=== PATIENT | female | born 1960 ===

== ENCOUNTER 2023-08-29 06:07 | Day surgery (SDC) | payer BC, SELFPAY ==
[2023-08-29 06:30] VITALS: BP 128/91; PULSE 87; RESP 18; TEMP 36.5; O2SAT 98
[2023-08-29] MEDS: Tropicam./Phenyleph. (1/2.5%) 5 ML BTL OS ×3 (06:38→06:53)
--- NOTE | 2023-08-29 07:04 | W.ANESPRE ---
General Info Date of Service Date Performed: 08/29/23 Height: 5 ft 3 in Weight: 54.6 kg Body Mass Index (BMI): 21.3 Surgical Procedure: Operation Date: 08/29/23 07:40 Proposed Procedure Side Surgeon p Cataract Extraction with IOL Implant Left Jose Luis Hui MD Meds Allergies and Home Medications Allergies Allergy/AdvReac Type Severity Reaction Status Date / Time No Known Allergies Allergy Unverified 08/29/23 06:41 Home Medication Medication Instructions Recorded acyclovir 200 mg PO 5X/DAY PRN 08/26/23 cetirizine 10 mg tablet (24Hour 10 mg PO DAILY 08/26/23 Allergy) ezetimibe 10 mg tablet 10 mg PO DAILY 08/26/23 fluticasone propionate 50 1 spray intranasal DAILY PRN 08/26/23 mcg/actuation nasal spray,suspension (24 Hour Allergy Relief) multivitamin (Daily Multi-Vitamin 1 tab PO DAILY 08/26/23 tablet) spironolactone 50 mg tablet 50 mg PO DAILY 08/26/23 (Aldactone) tretinoin 0.025 % topical cream 1 applic topical QHS 08/26/23 (Avita) Current Visit Medications: Current Medications Generic Name Dose Route Start Last Admin Trade Name Freq PRN Reason Stop Dose Admin Acetaminophen 1,000 mg 08/29/23 06:00 Acetaminophen 500 Mg Tab PO 09/28/23 05:59 Q4H PRN PRN Balanced Salt Solution 500 ml 08/29/23 06:00 Balanced Salt Soln.-Plus 500 Ml Bag OP 09/28/23 05:59 DIRECTED MICHAEL Miscellaneous Medication 0 ml 08/29/23 06:00 08/29/23 06:53 Tropicam./Phenyleph. (1/2.5%) 5 Ml Btl OS 09/28/23 05:59 1 drp DIRECTED MICHAEL Administration Miscellaneous Medication 0 ml 08/29/23 06:00 Prednisolone 1%, Moxifloxacin 0.5%, Bromfenac 0.09% 5ml Btl OS 09/28/23 05:59 DIRECTED MICHAEL Tetracaine HCl 0 ml 08/29/23 06:00 Tetracaine 0.5% 4 Ml Btl OS 09/28/23 05:59 DIRECTED MICHAEL PFSH Active Problems Active Problems: Problem Status Onset Code Cortical age-related cataract, left eye H25.012 Nuclear age-related cataract, left eye H25.12 Medical History Medical History Cataracts, bilateral History of uterine fibroid Acne vulgaris Allergic rhinitis Perimenopausal Hypercholesteremia Surgical History Surgical History H/O vaginal hysterectomy 2007 History of colonoscopy 05/24/09 Tobacco Smoking/Tobacco Use Status: Never Alcohol Alcohol Intake: current Alcohol intake frequency: holidays/special occasions only Substance Use Substance use: Never Substance use type: does not use Vital Signs and Lab Results Vital Signs Most Recent Vital Signs in EMR: Most Recent Vital Signs Temp Pulse Resp BP Pulse Ox 36.5 C 87 18 128/91 H 98 08/29/23 06:30 08/29/23 06:30 08/29/23 06:30 08/29/23 06:30 08/29/23 06:30 Lab Results Blood Type / Crossmatch: No Data to Display Complete Blood Count: No Data to Display Complete Metabolic Panel: No Data to Display Liver Function Panel: No Data to Display Coagulation Panel: No Data to Display Cardiac Panel: No Data to Display Arterial Blood Gas: No Data to Display Venous Blood Gas: No Data to Display Pancreas Panel: No Data to Display Thyroid Panel: No Data to Display Infectious Disease: No Data to Display Blood Cultures: No Data to Display Toxicology Panel: No Data to Display Anesthesia Assessment and Plan Anesthesia History Personal History: No History of Anesthesia Complications Family History: No Family History of Anesthesia Complications Exercise Tolerance Exercise Tolerance: Metabolic Equivalents>4 Pertinent Negatives Pertinent Negatives: No Symptoms of GERD, No Major Cardiovascular Symptoms or Complaints and No Major Pulmonary Symptoms or Complaints Cardiac & Pulmonary Exam Cardiac Exam: Normal S1/S2 Heart Sounds Pulmonary Exam: Clear Bilateral Breath Sounds Implantable Cardiac Device Does patient have a Pacemaker or an ICD?: No Airway Exam Known Difficult Airway: No Mallampati Class: 1 Mouth Opening: Normal (> 3cm) Thyromental Distance: Greater than 3 cm Neck Range of Motion: Full ROM Neck Circumference: Normal Teeth Condition: Normal Dentition ASA Classification ASA Score: ASA 2 Emergency Case?: No NPO Status NPO Status: NPO Clears >2 hours, Solids >8 hours Anesthesia Plan Resuscitation Status: Full Code Anesthesia Technique: MAC Anesthesia Airway Planned: Natural Airway Monitors Used: Standard Monitors
[2023-08-29 07:06] VITALS: BMI 21.3
[2023-08-29] MEDS: Lidocaine 1% Pres-Free 5 ML VIAL (07:36)
[2023-08-29] MEDS: Duovisc Viscoelastic System EACH 1 EACH (07:37)
[2023-08-29] MEDS: Balanced Salt Soln.-PLUS 500 ML BAG OP (07:39)
[2023-08-29] MEDS: Povidone-Iodine Ophth 30 ML BTL (07:41)
[2023-08-29] MEDS: Tetracaine 0.5% 4 ML BTL OS (07:41)
[2023-08-29 07:52] VITALS: BP 93/71; PULSE 76; RESP 16; TEMP 36.5; O2SAT 16
--- NOTE | 2023-08-29 07:52 | W.PM.DSUDISC ---
Date of service: 08/29/23 Time of Service: 07:52 Discharge Plan Disposition Patient Disposition: Home Discharge Details Attending Provider: Jose Luis Hui Primary Care Provider: Amberly Marx Home Meds and New Rx's Prescriptions: No Action acyclovir 200 mg PO 5X/DAY PRN ezetimibe 10 mg tablet 10 mg PO DAILY fluticasone propionate [24 Hour Allergy Relief] 50 mcg/actuation spray,suspension 1 spray intranasal DAILY PRN Rx Instructions: administer into each nostril multivitamin [Daily Multi-Vitamin] Tablet 1 tab PO DAILY tretinoin [Avita] 0.025 % cream 1 applic topical QHS spironolactone [Aldactone] 50 mg tablet 50 mg PO DAILY cetirizine [24Hour Allergy] 10 mg tablet 10 mg PO DAILY Discharge Instructions Stand Alone Forms: Post-op Topical Cataract, Geraldine Godoyey ([facility]) Discharge Orders Discharge Orders: Discharge Order (Routine); Ordered 08/29/23 Ordered By: Jose Luis Hui DS: Diagnosis Discharge Diagnosis (1) Cortical age-related cataract, left eye: Status: Resolved (2) Nuclear age-related cataract, left eye: Status: Resolved
--- NOTE | 2023-08-29 07:53 | W.PM.OP ---
Date of service: 08/29/23 Time of Service: 07:53 Operative Note Operative Note DATE OF PROCEDURE: 08/29/23 POST-OP DIAGNOSIS: same PROCEDURE: Cataract extraction using phacoemulsification with intraocular lens implant, left eye SURGEON: Jose Luis Hui ANESTHESIA TYPE: Local By Surgeon and MAC Refer to Anesthesia Record PATHOLOGY: none sent COMPLICATIONS: None Patient was transported to: same day Patient's condition: stable Implants: David and David Tecnis Eyhance [id number] Indications: Progressive decreased vision due to cataract, left eye Procedure Description: CATARACT SURGERY OPERATIVE REPORT PREOPERATIVE DIAGNOSIS: 1. Nuclear/cortical cataract, left eye POSTOPERATIVE DIAGNOSIS: Same OPERATION: 1. Cataract extraction using phacoemulsification with posterior chamber intraocular lens implant, left eye. IOL: IOL Package Delivery Driver/Model: David & David Tecnis Eyhance [id number] IOL Power: + 15.5 diopters IOL Serial Number: [id number] Optic Diameter: 6.0 mm Haptic/Overall Diameter: 13.0 mm PHACO INFO: Steve Keniuurion Vision System with OZil and Active Fluidics Cumulative Dispersed Energy (CDE): 6.42 seconds SURGEON: Jose Luis Hui MD, JAS ANESTHESIA: Monitored A [facility] (MAC), with local sub-tenon's anesthetic infiltration COMPLICATIONS: None SPECIMENS: None INDICATIONS FOR PROCEDURE: The patient is a 63-year-old lady with history of myopia who has developed symptomatic bilateral nuclear/cortical cataract. She is significantly symptomatic that she desires cataract surgery and attempt to improve and maximize her vision. See office notes for detailed information. PROCEDURE: The correct surgical eye was identified and marked as the left eye and the pupil was dilated in the preoperative area using mydriatics and cycloplegics. The dilated pupil size was 7.0 mm. Oral sedation was administered in the form of an Imprimis MKO Melt (midazolam 3mg/ketamine 25mg/ondansetron 2mg). The patient was brought to the operating room where cardiopulmonary monitoring was instituted and surgical time-out was performed, confirming the correct operative eye and IOL power. Topical anesthesia was administered and ophthalmic povidone-iodine 5% was instilled into the conjunctival fornices. The yazmin-ocular area was prepped with Betadine 10% solution and draped in the usual sterile fashion for intraocular surgery, including an aperture drape. A Tegaderm transparent film dressing was cut in half and used to cover the lashes and lid margins. Care was taken to sequester the lashes and lid margins under the Tegaderm dressing. A lid speculum was placed between the lids of the operative eye and the Steve LuxOR Revalia operating microscope was maneuvered into position. Jayson scissors were then used to make a conjunctival buttonhole approximately 6mm posterior to the limbus in the inferonasal quadrant. Blunt dissection was carried out to expose bare sclera, and a blunt-tipped sub-tenon?s anesthesia cannula was introduced and passed posteriorly along the globe where non-preserved plain lidocaine was injected into posterior sub-Tenon?s space. A sideport knife was used to make a paracentesis port. Intraocular phenylephrine/lidocaine was injected into the anterior chamber.. The anterior chamber was filled with viscoelastic. A keratome knife was used to construct a 2-plane near-clear corneal tunnel extending 2.0mm into clear cornea. A flap was raised on the anterior capsule and capsulorhexis forceps were used to complete a continuous curvilinear capsulorhexis of 5.0 mm. Balanced salt solution was then used to perform cortical cleaving hydrodissection and nuclear hydrodelineation until the lens could be freely rotated within the capsular bag. The lens nucleus was then disassembled and removed within the capsular bag and iris plane using phacoemulsification. Residual cortical material was removed using the irrigation/aspiration handpiece. The posterior capsule was carefully polished to remove as much residual lens epithelial cells as safely possible. The capsular bag was then inflated and the anterior chamber deepened with viscoelastic. The lens implant described above was inserted into the capsular bag using the David and David Simplicity pre-loaded injector. A Kuglen hook was used to dial the IOL into position. Residual viscoelastic was then removed first from posterior to the IOL, then from the anterior chamber using the I/A handpiece. The lens implant was noted to center nicely within the capsular bag. The incisions were stromally hydrated, and the anterior chamber was reformed using BSS. Then 0.5cc of moxifloxacin 1.0mg/ml were injected into the capsular bag and anterior chamber. The incisions were checked with a Weck spear and found to be secure. Several drops of ophthalmic povidone-iodine 5% were then applied to the eye followed by two drops of Imprimis combination prednisolone/moxifloxacin/nepafenac solution. The drapes were removed and a clear plastic protective eye shield was placed over the eye. The patient was then returned to Same Day Surgery in stable condition.
--- NOTE | 2023-08-29 08:10 | W.ANESPOSTOP ---
Postoperative Evaluation Date, Time and Location Date Performed: 08/29/23 Time Performed: 07:58 Patient Location: Day Surgery Unit Vital Signs Most Recent Imported Vital Signs: Most Recent Vital Signs Temp Pulse Resp BP Pulse Ox 36.5 C 76 16 93/71 L 16 L 08/29/23 07:52 08/29/23 07:52 08/29/23 07:52 08/29/23 07:52 08/29/23 07:52 Pain Score Most Recent Pain Score: Most Recent Pain Score Pain Level 0 08/29/23 07:52 Assessment Mental Status: Awake (Alert & Oriented to Patient Baseline) Airway and Respiratory Function: Patent airway with normal (patient baseline) respiratory exam Cardiovascular Function: Hemodynamically Stable (Slight lower blood pressure, nonsymptomatic) Hydration Status: Adequately Hydrated Nausea & Vomiting: No Nausea or Vomiting Pain: Pt. Denies Any Pain Peripheral Nerve Block: Patient did not receive a nerve block
[2023-08-29 08:20] VITALS: BP 124/85; PULSE 76; RESP 16; TEMP 37; O2SAT 97
== END 2023-08-29 08:28 | disposition home or self-care (01) ==
LOC: SUR 06:08
PROVIDERS: PCP Nurse Practitioner; Visit Provider Ophthalmology
PROC: (CPT 66984; principal; 2023-08-29 07:30)
DX: H25.012 Cortical age-related cataract, left eye (principal); H25.12 Age-related nuclear cataract, left eye
CPT/HCPCS: 66984; 00123; V2632

== ENCOUNTER 2023-09-12 06:17 | Day surgery (SDC) | payer BC, SELFPAY ==
[2023-09-12 06:41] VITALS: BP 130/76; PULSE 71; RESP 16; TEMP 36.6; O2SAT 98
--- NOTE | 2023-09-12 07:19 | ANES.PREOP_ITS ---
General Info Date of Service Date Performed: 09/12/23 Height: 5 ft 3 in Weight: 53.3 kg Body Mass Index (BMI): 20.8 Surgical Procedure: Operation Date: 09/12/23 07:40 Proposed Procedure Side Surgeon p Cataract Extraction with IOL Implant Right oJse Luis Hui MD Meds Allergies and Home Medications Allergies Allergy/AdvReac Type Severity Reaction Status Date / Time No Known Allergies Allergy Unverified 09/12/23 06:26 Home Medication Medication Instructions Recorded acyclovir 200 mg PO 5X/DAY PRN 08/26/23 cetirizine 10 mg tablet (24Hour 10 mg PO DAILY 08/26/23 Allergy) ezetimibe 10 mg tablet 10 mg PO DAILY 08/26/23 fluticasone propionate 50 1 spray intranasal DAILY PRN 08/26/23 mcg/actuation nasal spray,suspension (24 Hour Allergy Relief) multivitamin (Daily Multi-Vitamin 1 tab PO DAILY 08/26/23 tablet) spironolactone 50 mg tablet 50 mg PO DAILY 08/26/23 (Aldactone) tretinoin 0.025 % topical cream 1 applic topical QHS 08/26/23 (Avita) Current Visit Medications: Current Medications Generic Name Dose Route Start Last Admin Trade Name Freq PRN Reason Stop Dose Admin Acetaminophen 1,000 mg 09/12/23 06:00 Acetaminophen 500 Mg Tab PO 10/12/23 05:59 Q4H PRN PRN Balanced Salt Solution 500 ml 09/12/23 06:00 Balanced Salt Soln.-Plus 500 Ml Bag OP 10/12/23 05:59 DIRECTED [facility] Miscellaneous Medication 0 ml 09/12/23 09:00 09/12/23 06:53 Tropicam./Phenyleph. (1/2.5%) 10 Ml Btl OD 10/12/23 08:59 1 drp DIRECTED MIHCAEL Administration Miscellaneous Medication 0 ml 09/12/23 06:00 Prednisolone 1%, Moxifloxacin 0.5%, Bromfenac 0.09% 5ml Btl OD 10/12/23 05:59 DIRECTED MICHAEL Tetracaine HCl 0 ml 09/12/23 06:00 Tetracaine 0.5% 4 Ml Btl OD 10/12/23 05:59 DIRECTED MICHAEL PFSH Active Problems Active Problems: Problem Status Onset Code Cortical age-related cataract, right eye H25.011 Nuclear age-related cataract, right eye H25.11 Cortical age-related cataract, left eye H25.012 Nuclear age-related cataract, left eye H25.12 Medical History Medical History Cataracts, bilateral History of uterine fibroid Acne vulgaris Allergic rhinitis Perimenopausal Hypercholesteremia Surgical History Surgical History H/O vaginal hysterectomy 2007 History of colonoscopy 05/24/09 Tobacco Smoking/Tobacco Use Status: Never Alcohol Alcohol Intake: current Alcohol intake frequency: holidays/special occasions only Substance Use Substance use: Never Substance use type: does not use Vital Signs and Lab Results Vital Signs Most Recent Vital Signs in EMR: Most Recent Vital Signs Temp Pulse Resp BP Pulse Ox 36.6 C 71 16 130/76 98 09/12/23 06:41 09/12/23 06:41 09/12/23 06:41 09/12/23 06:41 09/12/23 06:41 Lab Results Blood Type / Crossmatch: No Data to Display Complete Blood Count: No Data to Display Complete Metabolic Panel: No Data to Display Liver Function Panel: No Data to Display Coagulation Panel: No Data to Display Cardiac Panel: No Data to Display Arterial Blood Gas: No Data to Display Venous Blood Gas: No Data to Display Pancreas Panel: No Data to Display Thyroid Panel: No Data to Display Infectious Disease: No Data to Display Blood Cultures: No Data to Display Toxicology Panel: No Data to Display Anesthesia Assessment and Plan Anesthesia History Personal History: No History of Anesthesia Complications Family History: No Family History of Anesthesia Complications Exercise Tolerance Exercise Tolerance: Metabolic Equivalents>4 Pertinent Negatives Pertinent Negatives: No Symptoms of GERD Cardiac & Pulmonary Exam Cardiac Exam: Normal S1/S2 Heart Sounds Pulmonary Exam: Clear Bilateral Breath Sounds Implantable Cardiac Device Does patient have a Pacemaker or an ICD?: No Airway Exam Known Difficult Airway: No Mallampati Class: 1 Mouth Opening: Normal (> 3cm) Thyromental Distance: Greater than 3 cm Neck Range of Motion: Full ROM Neck Circumference: Normal Teeth Condition: Normal Dentition ASA Classification ASA Score: ASA 2 Emergency Case?: No NPO Status NPO Status: NPO Clears >2 hours, Solids >8 hours Anesthesia Plan Resuscitation Status: Full Code Anesthesia Technique: MAC Anesthesia Airway Planned: Natural Airway Monitors Used: Standard Monitors
[2023-09-12 07:20] VITALS: BMI 20.8
[2023-09-12] MEDS: Tetracaine 0.5% 4 ML BTL OD (07:26)
[2023-09-12] MEDS: Lidocaine 1% Pres-Free 5 ML VIAL (07:38)
[2023-09-12] MEDS: Duovisc Viscoelastic System EACH 1 EACH (07:40)
[2023-09-12] MEDS: Povidone-Iodine Ophth 30 ML BTL (07:41)
[2023-09-12] MEDS: Balanced Salt Soln.-PLUS 500 ML BAG OP (07:41)
--- NOTE | 2023-09-12 07:55 | W.PM.DSUDISC ---
Date of service: 09/12/23 Time of Service: 07:55 Discharge Plan Disposition Patient Disposition: Home Discharge Details Attending Provider: Jose Luis Hui Primary Care Provider: Amberly Marx Home Meds and New Rx's Prescriptions: No Action acyclovir 200 mg PO 5X/DAY PRN ezetimibe 10 mg tablet 10 mg PO DAILY fluticasone propionate [24 Hour Allergy Relief] 50 mcg/actuation spray,suspension 1 spray intranasal DAILY PRN Rx Instructions: administer into each nostril multivitamin [Daily Multi-Vitamin] Tablet 1 tab PO DAILY tretinoin [Avita] 0.025 % cream 1 applic topical QHS spironolactone [Aldactone] 50 mg tablet 50 mg PO DAILY cetirizine [24Hour Allergy] 10 mg tablet 10 mg PO DAILY Discharge Instructions Stand Alone Forms: DSU Post-Op Cataract Discharge Orders Discharge Orders: Discharge Order (Routine); Ordered 09/12/23 Ordered By: Jose Luis Hui DS: Diagnosis Discharge Diagnosis (1) Cortical age-related cataract, right eye: Status: Resolved (2) Nuclear age-related cataract, right eye: Status: Resolved
--- NOTE | 2023-09-12 07:55 | W.PM.OP ---
Date of service: 09/12/23 Time of Service: 07:56 Operative Note Operative Note DATE OF PROCEDURE: 09/12/23 PRE-OP DIAGNOSIS: Nuclear/cortical cataract, right eye POST-OP DIAGNOSIS: same PROCEDURE: Cataract extraction using phacoemulsification with intraocular lens implant, right eye SURGEON: Jose Luis Hui ANESTHESIA TYPE: Local By Surgeon and MAC Refer to Anesthesia Record ESTIMATED BLOOD LOSS: 0 PATHOLOGY: none sent COMPLICATIONS: None Patient was transported to: same day Patient's condition: stable Implants: David & David Tecnis Eyhance [id number] Indications: Progressive visual loss due to cataract, right eye Procedure Description: CATARACT SURGERY OPERATIVE REPORT PREOPERATIVE DIAGNOSIS: 1. Nuclear/cortical cataract, right eye POSTOPERATIVE DIAGNOSIS: Same OPERATION: 1. Cataract extraction using phacoemulsification with posterior chamber intraocular lens implant, right eye. IOL: IOL Supervisor Elementary Education/Model: David & David Tecnis Eyhance [id number] IOL Power: + 14.5 diopters IOL Serial Number: [id number] Optic Diameter: 6.0mm Haptic/Overall Diameter: 13.0mm PHACO INFO: Steve [employer] Mobile Solutionsurion Vision System with OZil and Active Fluidics Cumulative Dispersed Energy (CDE): 6.89 seconds SURGEON: Jose Luis Hui MD, JAS ANESTHESIA: Monitored Anesthesia Care (MAC), with local sub-tenon's anesthetic infiltration COMPLICATIONS: None SPECIMENS: None INDICATIONS FOR PROCEDURE: The patient is a 63-year-old lady with history of diminished visual acuity in both eyes secondary to the development of bilateral nuclear/cortical cataract. She has already undergone cataract surgery in the left eye and is doing well postoperatively. She now presents for cataract surgery in the right eye. See office notes for detailed information. PROCEDURE: The correct surgical eye was identified and marked as the right eye and the pupil was dilated in the preoperative area using mydriatics and cycloplegics. The dilated pupil size was 7.0 mm. . The patient elected to proceed without oral sedation. The patient was brought to the operating room where cardiopulmonary monitoring was instituted and surgical time-out was performed, confirming the correct operative eye and IOL power. Topical anesthesia was administered and ophthalmic povidone-iodine 5% was instilled into the conjunctival fornices. The yazmin-ocular area was prepped with Betadine 10% solution and draped in the usual sterile fashion for intraocular surgery, including an aperture drape. A Tegaderm transparent film dressing was cut in half and used to cover the lashes and lid margins. Care was taken to sequester the lashes and lid margins under the Tegaderm dressing. A lid speculum was placed between the lids of the operative eye and the Steve LuxOR Revalia operating microscope was maneuvered into position. Jayson scissors were then used to make a conjunctival buttonhole approximately 6mm posterior to the limbus in the inferonasal quadrant. Blunt dissection was carried out to expose bare sclera, and a blunt-tipped sub-tenon?s anesthesia cannula was introduced and passed posteriorly along the globe where non-preserved plain lidocaine was injected into posterior sub-Tenon?s space. A sideport knife was used to make a paracentesis port. Intraocular phenylephrine/lidocaine was injected into the anterior chamber. The anterior chamber was filled with viscoelastic. A keratome knife was used to construct a 2-plane clear corneal tunnel extending 2.0mm into clear cornea. A flap was raised on the anterior capsule and capsulorhexis forceps were used to complete a continuous curvilinear capsulorhexis of 5.0 mm. Balanced salt solution was then used to perform cortical cleaving hydrodissection and nuclear hydrodelineation until the lens could be freely rotated within the capsular bag. The lens nucleus was then disassembled and removed within the capsular bag and iris plane using phacoemulsification. Residual cortical material was removed using the I/A handpiece. The posterior capsule was carefully polished to remove as much residual lens epithelial cells as safely possible. The capsular bag was then inflated and the anterior chamber deepened with cohesive viscoelastic. The lens implant described above was inserted into the capsular bag using the David and Fabiola Simplicity pre-loaded injector. A Kuglen hook was used to dial the IOL into position. Residual viscoelastic was then removed first from posterior to the IOL, then from the anterior chamber using the I/A handpiece. The lens implant was noted to center nicely within the capsular bag. The incisions were stromally hydrated, and the anterior chamber was reformed using BSS. Then 0.5cc of moxifloxacin 1.0mg/ml were injected into the capsular bag and anterior chamber. The incisions were checked with a Weck spear and found to be secure. Several drops of ophthalmic povidone-iodine 5% were then applied to the eye followed by two drops ocombination steroid/NSAID/antibiotic solution. The drapes were removed and a clear plastic protective eye shield was placed over the eye. The patient was then returned to Same Day Surgery in stable condition.
[2023-09-12 07:56] VITALS: BP 134/78; PULSE 76; RESP 16; TEMP 36.5; O2SAT 100
--- NOTE | 2023-09-12 08:01 | W.ANESPOSTOP ---
Postoperative Evaluation Date, Time and Location Date Performed: 09/12/23 Time Performed: 08:01 Patient Location: Day Surgery Unit Vital Signs Most Recent Imported Vital Signs: Most Recent Vital Signs Temp Pulse Resp BP Pulse Ox 36.6 C 71 16 130/76 98 09/12/23 06:41 09/12/23 06:41 09/12/23 06:41 09/12/23 06:41 09/12/23 06:41 Pain Score Most Recent Pain Score: Most Recent Pain Score Pain Level 0 09/12/23 06:41 Assessment Mental Status: Awake (Alert & Oriented to Patient Baseline) Airway and Respiratory Function: Patent airway with normal (patient baseline) respiratory exam Cardiovascular Function: Hemodynamically Stable Hydration Status: Adequately Hydrated Nausea & Vomiting: No Nausea or Vomiting Pain: Pt. Denies Any Pain Peripheral Nerve Block: Patient did not receive a nerve block
== END 2023-09-12 08:15 | disposition home or self-care (01) ==
PROVIDERS: PCP Nurse Practitioner; Visit Provider Ophthalmology
PROC: (CPT 66984; principal; 2023-09-12 07:30)
DX: H25.011 Cortical age-related cataract, right eye (principal); Z98.42 Cataract extraction status, left eye; H25.11 Age-related nuclear cataract, right eye
CPT/HCPCS: 66984; 00123; V2632